=== PATIENT | male | born 1955 | race Caucasian/White ===

== ENCOUNTER 2016-11-04 08:24 | Observation (INO) | payer BC, OTHER ==
[~2016-11-04] VITALS: Ht 182.9 cm; Wt 85.0 kg
[2016-11-04] VITALS (8 sets, daily range): BP systolic 110–131; BP diastolic 70–83; PULSE 58–67; RESP 16–18; TEMP 97.5–97.9; O2SAT 95–99
[~2016-11-04 08:24] MED LIST: ENOX30P SQ; FERR324T8 PO; LORTA5 PO; Z.0.COMMODE-3:1; Z.0.WALKERFRONT
[2016-11-04] MEDS ORDERED: IOHEXOL 350 MG/ML 10 ML VIAL (for RAD DIAG) IVCONTRAST ONE (08:25)
--- NOTE | 2016-11-04 08:50 | PD ---
HPI Chief Complaint: Chest Pain Time Seen by Provider: 08:49 Travel History International Travel<30 days: No Contact w/Intl Traveler<30days: No Traveled to known affect area: No History of Present Illness HPI 61-year-old male came to the emergency room with history of chest pain and shortness of breath that started all of a sudden about 1 hour ago. Patient points to the left side of his chest where the pain is. He describes the pain like a pressure and says it 7 out of 10. Pain is worse upon taking a deep inspiration. No relieving factors identified. Patient was not doing anything strenuous when the pain started. He's never experienced pain like this before. Vital signs were stable. Patient is not on any medications. He has a primary care. Patient has never had any stress test or cardiac catheterization. Patient is a smoker. His dad has history of coronary artery disease at the age of 70s. PFSH Past Medical History Narrative Medical list of his past medical, surgical, social and family history reviewed from the nursing note. Arthritis: Yes Cancer: Yes (SKIN) Cardiovascular Problems: No Diabetes: No Diminished Hearing: No Endocrine: No Gastrointestinal Disorders: No Genitourinary: No Hepatitis: No Hiatal Hernia: No Hypertension: No Immune Disorder: No Implanted Vascular Access Dvce: Yes Kidney Stones: Yes (DX ON 11/29/06 AT [facility] IN [place]) Musculoskeletal: Yes (ARTHRITIS) Neurologic: No Psychiatric: No Reproductive: No Respiratory: No Immunizations Current: No Thyroid Disease: No Tetanus Vaccination: < 5 Years Influenza Vaccination: No Past Surgical History Abdominal Surgery: No AICD: No Body Medical Devices: LEFT SHOULDER RECAP (IS METAL) Cardiac Surgery: No Ear Surgery: No Eye Surgery: No Genitourinary Surgery: No Joint Replacement: Yes (RIGHT KNEE ) Neurologic Surgery: No Oral Surgery: Yes (WISDOM TEETH EXTRACT., TONSILLECTOMY) Pacemaker: No Thoracic Surgery: No Tonsillectomy: Yes Other Surgery: Yes (SHOULDER, STAPH L ELBOW) Social History Alcohol Use: Yes (OCASSIONALLY) Tobacco Use: No Substance Use: No (PT DENIES ) Allergies-Medications (Allergen,Severity, Reaction): Coded Allergies: adhesive (Verified Allergy, Severe, SKIN INFLAMMATION, 11/04/16) rivaroxaban (Verified Allergy, Unknown, Hives, 11/04/16) Comments list of his allergies reviewed from the nursing note. Reported Meds & Prescriptions Reported Meds & Active Scripts Active No Active Prescriptions or Reported Medications Narrative Medication List of his home medications reviewed from the nursing note. Review of Systems Except as stated in HPI: all other systems reviewed are Neg Physical Exam Narrative GENERAL: Awake, alert, anxious, moderate distress SKIN: Focused skin assessment warm/dry. HEAD: Atraumatic. Normocephalic. EYES: Pupils equal and round. No scleral icterus. No injection or drainage. ENT: No nasal bleeding or discharge. Mucous membranes pink and moist. NECK: Trachea midline. No JVD. CARDIOVASCULAR: Regular rate and rhythm. No murmur appreciated. RESPIRATORY: No accessory muscle use. Clear to auscultation. Breath sounds equal bilaterally. GASTROINTESTINAL: Abdomen soft, non-tender, nondistended. Hepatic and splenic margins not palpable. MUSCULOSKELETAL: No obvious deformities. No clubbing. No cyanosis. No edema. NEUROLOGICAL: Awake and alert. No obvious cranial nerve deficits. Motor grossly within normal limits. Normal speech. PSYCHIATRIC: Appropriate mood and affect; insight and judgment normal. Data Data Last Documented VS Vital Signs Date Time Temp Pulse Resp B/P (MAP) Pulse Ox O2 Delivery O2 Flow Rate FiO2 11/04/16 11:00 97.8 60 17 131/83 (99) 97 Room Air Orders Orders Electrocardiogram (11/04/16 08:55) Basic Metabolic Panel (Bmp) (11/04/16 08:55) B-Type Natriuretic Peptide (11/04/16 08:55) Ckmb (Isoenzyme) Profile (11/04/16 08:55) Complete Blood Count With Diff (11/04/16 08:55) D-Dimer (11/04/16 08:55) Magnesium (Mg) (11/04/16 08:55) Prothrombin Time / Inr (Pt) (11/04/16 08:55) Act Partial Throm Time (Ptt) (11/04/16 08:55) Troponin I (11/04/16 08:55) Chest, Single Ap (11/04/16 08:55) Ecg Monitoring (11/04/16 08:55) Bilateral Bp Monitoring (11/04/16 08:55) Iv Access Insert/Monitor (11/04/16 08:55) Oximetry (11/04/16 08:55) Oxygen Administration (11/04/16 08:55) Aspirin Chew (Aspirin Chew) (11/04/16 09:00) Sodium Chloride 0.9% Flush (Ns Flush) (11/04/16 09:00) Morphine Inj (Morphine Inj) (11/04/16 09:00) CKMB (11/04/16 09:00) CKMB% (11/04/16 09:00) Ct Pulmonary Angiogram (11/04/16 ) Sodium Chlorid 0.9% 500 Ml Inj (Ns 500 M (11/04/16 11:00) Iohexol 350 Inj (Omnipaque 350 Inj) (11/04/16 08:25) Admit Order (Ed Use Only) (11/04/16 12:38) Labs Laboratory Tests Test 11/04/16 09:00 White Blood Count 5.8 TH/MM3 Red Blood Count 5.20 MIL/MM3 Hemoglobin 15.1 GM/DL Hematocrit 46.4 % Mean Corpuscular Volume 89.3 FL Mean Corpuscular Hemoglobin 29.0 PG Mean Corpuscular Hemoglobin Concent 32.5 % Red Cell Distribution Width 13.1 % Platelet Count 183 TH/MM3 Mean Platelet Volume 10.4 FL Neutrophils (%) (Auto) 66.0 % Lymphocytes (%) (Auto) 20.3 % Monocytes (%) (Auto) 8.8 % Eosinophils (%) (Auto) 3.8 % Basophils (%) (Auto) 1.1 % Neutrophils # (Auto) 3.8 TH/MM3 Lymphocytes # (Auto) 1.2 TH/MM3 Monocytes # (Auto) 0.5 TH/MM3 Eosinophils # (Auto) 0.2 TH/MM3 Basophils # (Auto) 0.1 TH/MM3 CBC Comment DIFF FINAL Differential Comment Prothrombin Time 11.2 SEC Prothromb Time International Ratio 1.0 RATIO Activated Partial Thromboplast Time 26.8 SEC D-Dimer Quantitative (PE/DVT) 0.52 MG/L FEU Blood Urea Nitrogen 19 MG/DL Creatinine 1.18 MG/DL Random Glucose 89 MG/DL Calcium Level 8.5 MG/DL Magnesium Level 2.4 MG/DL Sodium Level 139 MEQ/L Potassium Level 4.2 MEQ/L Chloride Level 106 MEQ/L Carbon Dioxide Level 28.4 MEQ/L Anion Gap 5 MEQ/L Estimat Glomerular Filtration Rate 63 ML/MIN Total Creatine Kinase 130 U/L Creatine Kinase MB 1.3 NG/ML Troponin I LESS THAN 0.02 NG/ML B-Type Natriuretic Peptide 23 PG/ML MDM Medical Decision Making Medical Screen Exam Complete: Yes Emergency Medical Condition: Yes Medical Record Reviewed: Yes Interpretation(s) Normal sinus rhythm, normal axis, bradycardia, nonspecific ST-T wave changes. Heart rate of 55 bpm. Differential Diagnosis ACS, non-STEMI, PE Narrative Course 11:57 AM blood test results of back and within acceptable limits. D-dimer was slightly elevated. Chest x-rays within normal limit. However because of the elevated d-dimer and history of pleuritic chest pain I have ordered a CT pulmonary angiogram. Awaiting for the test results. If CT pulmonary gram does not show PE patient will be admitted to the chest pain center. He was given 2 baby aspirin and IV morphine for his pain. 12:[address] pulmonary angiogram was negative for PE. I've admitted the patient to the chest pain center to rule out ACS. Procedures EKG Prior to Arrival: No Diagnosis Primary Impression: Chest pain Qualified Codes: R07.9 - Chest pain, unspecified Admitting Information Admitting Physician Requests: Observation Scripts No Active Prescriptions or Reported Meds Funmilayo Tinajero MD Nov 04, 2016 08:50
[2016-11-04] MEDS ORDERED: ASPIRIN 81 MG CHEW TAB PO ONE (09:00)
[2016-11-04] MEDS ORDERED: MORPHINE SULFATE 4 MG/ML INJ IV PUSH ONE (09:00)
[2016-11-04] MEDS: SODIUM CHLORIDE 0.9% FLUSH 10 ML FLUSH IVF PRN ×2 (09:04→12:54)
--- NOTE | 2016-11-04 09:30 | RADRPT ---
EXAM DATE/TIME: 11/04/2016 08:57 [facility] COMPARISON: CHEST SINGLE AP, November 07, 2014, 22:34. INDICATIONS : Chest pain. MEDICAL HISTORY : None. SURGICAL HISTORY : None. ENCOUNTER: Initial ACUITY: 2 days PAIN SCORE: 9/10 LOCATION: Left upper chest FINDINGS: A single view of the chest demonstrates the lungs to be symmetrically aerated without evidence of mas s, infiltrate or effusion. The cardiomediastinal contours are unremarkable. Left shoulder arthropla sty. Osseous structures are intact. CONCLUSION: 1. No acute cardiopulmonary disease. Joe Abebe MD on November 04, 2016 at 9:26 Board Certified Radiologist. This report was verified electronically.
[2016-11-04 09:37] LABS: AUTOMATED NEUTROPHIL # 3.8 TH/MM3 (1.8-7.7); BASOPHIL # 0.1 TH/MM3 (0-0.2); BASOPHIL % 1.1 % (0.0-2.0); EOSINOPHIL # 0.2 TH/MM3 (0-0.4); EOSINOPHIL % 3.8 % (0.0-4.0); HEMATOCRIT 46.4 % (39.0-51.0); HEMO FLAGS DIFF FINAL; LYMPH % 20.3 % (9.0-44.0); LYMPHOCYTE # 1.2 TH/MM3 (1.0-4.8); MEAN CELL VOLUME 89.3 FL (80.0-100.0); MEAN CORPUSCULAR HGB CONC 32.5 % (32.0-36.0); MONO % 8.8 % (0.0-8.0); PLATELET COUNT 183 TH/MM3 (150-450); RED CELL DISTRIBUTION WIDTH 13.1 % (11.6-17.2); WHITE BLOOD COUNT 5.8 TH/MM3 (4.0-11.0)
[2016-11-04 09:47] LABS: APTT (PATIENT) 26.8 SEC (24.3-30.1); PROTHROMBIN TIME - PATIENT 11.2 SEC (9.8-11.6)
[2016-11-04 09:58] LABS: CREATINE KINASE 130 U/L (39-308)
[2016-11-04 10:04] LABS: ANION GAP 5 MEQ/L (5-15); BICARBONATE 28.4 MEQ/L (21.0-32.0); BLOOD UREA NITROGEN 19 MG/DL (7-18); CHLORIDE 106 MEQ/L (98-107); GLOMERULAR FILTRATION RATE 63 ML/MIN (>89); MAGNESIUM 2.4 MG/DL (1.5-2.5); POTASSIUM 4.2 MEQ/L (3.5-5.1); SODIUM (NA) 139 MEQ/L (136-145)
[2016-11-04 10:14] LABS: CKMB 1.3 NG/ML (0.5-3.6)
[2016-11-04] MEDS ORDERED: SODIUM CHLORID 0.9% 500 ML INJ 500 ML IV ONE (11:00)
--- NOTE | 2016-11-04 11:03 | EKG ---
Date Performed: 11/04/2016 Time Performed: 08:33:29 PTAGE: 61 years EKG: SINUS BRADYCARDIA BORDERLINE ECG PREVIOUS TRACING : 11/04/2016 08.32 No significant change from previous tracing noted. DOCTOR: Rajat Paredes Interpretating Date/Time 11/04/2016 11:02:37
--- NOTE | 2016-11-04 11:22 | RADRPT ---
EXAM DATE/TIME: 11/04/2016 11:02 [facility] COMPARISON: No previous studies available for comparison. INDICATIONS : Chest pain, left arm numbness, nausea. IV CONTRAST: 85 cc Omnipaque 350 (iohexol) IV RADIATION DOSE: 23.14 CTDIvol (mGy) MEDICAL HISTORY : Renal calculi. SURGICAL HISTORY : None. ENCOUNTER: Initial ACUITY: 1 day PAIN SCALE: 4/10 LOCATION: Left chest TECHNIQUE: Volumetric scanning of the chest was performed using a pulmonary embolism protocol MIP images were re constructed. Using automated exposure control and adjustment of the mA and/or kV according to patien t size, radiation dose was kept as low as reasonably achievable to obtain optimal diagnostic quality images. DICOM format image data is available electronically for review and comparison. Follow-up recommendations for detected pulmonary nodules are based at a minimum on nodule size and pa tient risk factors according to Fleischner Society Guidelines. FINDINGS: The lungs are clear without infiltrate, nodule, or mass. There is no pleural effusion. No appreciab le pathological adenopathy is seen within the mediastinum. There is no evidence for PE for technique. CONCLUSION: Unremarkable study. Nuzhat Titus MD on November 04, 2016 at 11:18 Board Certified Radiologist. This report was verified electronically.
[2016-11-04] MEDS ORDERED: KETOROLAC TROMETHAMINE 30 MG/ML (IVP) VIAL IV PUSH ONE (12:45)
--- NOTE | 2016-11-04 14:10 | HHI.HP ---
[facility] Primary Care Physician Chris Jason MD Chief Complaint Chest pain History of Present Illness This is a 61-year-old male that presents to ED with a complaint of a left-sided chest discomfort. It was a sudden onset that began at 745 this morning while he was at home getting ready for work. When asked to describe the discomfort he states "like someone stabbing me." States the discomfort is still there. It was an 8 out of 10 but states it reduced to about a 4 out of 10 after getting IV morphine. Found nothing to worsen it. Cannot recall having a prior cardiac workup. States that his father has CAD onset in his 70s. Patient states he is active. 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 Denies recent illness. Denies recent travel. Review of Systems General: Patient denies fevers, chills recent, and recent travel HEENT: Patient denies headache, sore throat, difficulty swallowing. Cardiovascular: Has the chest discomfort as mentioned above. Denies sensation of heart beating rapidly or irregularly. No syncope. Denies diaphoresis. Respiratory: He was short of breath earlier this morning. Worsened with deep inspiration. Denies coughing wheezing or hemoptysis. GI: He was nauseous initially. Patient denies vomiting, diarrhea, abdominal pain, bloody stools. Musculoskeletal: Patient denies joint pain or edema. Denies calf pain or edema. Neurovascular: Patient denies numbness, tingling, weakness in extremities. Denies headache. Endocrine: Denies polyuria and polydipsia. Hematologic: Denies easy bruising. Skin: Denies rash or itching. Past Family Social History Allergies: Coded Allergies: adhesive (Verified Allergy, Severe, SKIN INFLAMMATION, 11/04/16) rivaroxaban (Verified Allergy, Unknown, Hives, 11/04/16) Past Medical History Hyperlipidemia but states labs were just rechecked and seemed to be doing okay. No prescription yet. History of kidney disease that he states is related to NSAID use. Denies hypertension, diabetes, and known CAD. Past Surgical History Hip surgery, knee surgery, shoulder surgery, and tonsillectomy. Reported Medications Reported Meds & Active Scripts Active No Active Prescriptions or Reported Medications Active Ordered Medications Current Medications Medications (Trade) Dose Ordered Sig/[place] Route Start Time Stop Time Status Last Admin (NS Flush) 2 ml UNSCH PRN IVF 11/04/16 09:00 11/04/16 12:54 ([place] 7.5-325 Mg) 1 tab Q4H PRN PO 11/04/16 14:00 UNV (Zofran Inj) 4 mg Q6H PRN IV 11/04/16 14:00 UNV (Aspirin) 325 mg DAILY PO 11/05/16 09:00 UNV (Xanax) 0.25 mg Q8H PRN PO 11/04/16 14:00 UNV Family History His father had CAD onset in his 70s. Social History Patient is a lifetime nonsmoker. Occasionally has alcohol. Denies illicit drugs. He is . Physical Exam Vital Signs Vital Signs Date Time Temp Pulse Resp B/P (MAP) Pulse Ox O2 Delivery O2 Flow Rate FiO2 11/04/16 13:55 97.9 58 16 118/83 (95) 99 11/04/16 13:54 16 11/04/16 13:52 21 11/04/16 12:55 97.9 61 16 124/81 (95) 97 Room Air 11/04/16 11:00 97.8 60 17 131/83 (99) 97 Room Air 11/04/16 09:35 97.8 64 16 122/79 (93) 99 Room Air 11/04/16 09:09 17 11/04/16 09:05 58 18 118/75 (89) 96 Room Air 117/77 (90) 11/04/16 09:00 17 97 Room Air 11/04/16 09:00 97 Room Air 11/04/16 08:35 66 17 96 Room Air 11/04/16 08:26 97.5 67 16 117/72 (87) 97 Room Air Physical Exam GENERAL: This is a well-nourished, well-developed patient, in no apparent distress. Patient speaks in clear complete sentences. Patient is pleasant. HEENT: Head is atraumatic and normocephalic. Neck is supple without lymphadenopathy and trachea is midline. No JVD or carotid bruits. CARDIOVASCULAR: Regular rate and rhythm without murmurs, gallops, or rubs. RESPIRATORY: Clear to auscultation. Breath sounds equal bilaterally. No wheezes , rales, or rhonchi. Chest wall is nontender. No use of accessory muscles. GASTROINTESTINAL: Abdomen is nontender, nondistended. Abdomen soft. No obvious pulsatile mass or bruit. No CVA tenderness. Strong femoral pulses bilaterally. Normal bowel sounds in all quadrants. MUSCULOSKELETAL: Patient is moving upper and lower extremities freely. No calf tenderness or edema, no Homans sign. Strong pulses in upper and lower extremities. NEUROLOGICAL: Patient is alert and oriented. Cranial nerves 2-12 are grossly intact. No focal deficits and speech is clear. SKIN: No rash and turgor is normal. Laboratory Laboratory Tests Test 11/04/16 09:00 White Blood Count 5.8 Red Blood Count 5.20 Hemoglobin 15.1 Hematocrit 46.4 Mean Corpuscular Volume 89.3 Mean Corpuscular Hemoglobin 29.0 Mean Corpuscular Hemoglobin Concent 32.5 Red Cell Distribution Width 13.1 Platelet Count 183 Mean Platelet Volume 10.4 Neutrophils (%) (Auto) 66.0 Lymphocytes (%) (Auto) 20.3 Monocytes (%) (Auto) 8.8 Eosinophils (%) (Auto) 3.8 Basophils (%) (Auto) 1.1 Neutrophils # (Auto) 3.8 Lymphocytes # (Auto) 1.2 Monocytes # (Auto) 0.5 Eosinophils # (Auto) 0.2 Basophils # (Auto) 0.1 CBC Comment DIFF FINAL Differential Comment Prothrombin Time 11.2 Prothromb Time International Ratio 1.0 Activated Partial Thromboplast Time 26.8 D-Dimer Quantitative (PE/DVT) 0.52 Blood Urea Nitrogen 19 Creatinine 1.18 Random Glucose 89 Calcium Level 8.5 Magnesium Level 2.4 Sodium Level 139 Potassium Level 4.2 Chloride Level 106 Carbon Dioxide Level 28.4 Anion Gap 5 Estimat Glomerular Filtration Rate 63 Total Creatine Kinase 130 Creatine Kinase MB 1.3 Troponin I LESS THAN 0.02 B-Type Natriuretic Peptide 23 Result Diagram: 11/04/16 0900 11/04/16 0900 Imaging Last 48 hours Impressions Chest X-Ray 11/04/16 0855 Signed Impressions: Service Date/Time: October 08:57 - CONCLUSION: 1. No acute cardiopulmonary disease. Joe Abebe MD CT Angiography 11/04/16 0000 Signed Impressions: Service Date/Time: October 11:02 - CONCLUSION: Unremarkable study. Nuzhat Titus MD Course Initial EKG is sinus bradycardia without significant ST segment depressions or elevations. A repeated EKG is similar. No significant ST segment depressions or elevations. Caprini VTE Risk Assessment Caprini VTE Risk Assessment: No/Low Risk (score <= 1) Caprini Risk Assessment Model Point Value = 1 Point Value = 2 Point Value = 3 Point Value = 5 Age 41-60 Minor surgery BMI > 25 kg/m2 Swollen legs Varicose veins or History of unexplained or recurrent spontaneous Oral contraceptives or hormone replacement Sepsis (< 1 month) Serious lung disease, including pneumonia (< 1 month) Abnormal pulmonary function Acute myocardial infarction Congestive heart failure (< 1 month) History of inflammatory bowel disease Medical patient at bed rest Age 61-74 Arthroscopic surgery Major open surgery (> 45 min) Laparoscopic surgery (> 45 min) Malignancy Confined to bed (> 72 hours) Immobilizing plaster cast Central venous access Age >= 75 History of VTE Family history of VTE Factor V Leiden Prothrombin [id number] Lupus anticoagulant Anticardiolipin antibodies Elevated serum homocysteine Heparin-induced thrombocytopenia Other congenital or acquired thrombophilia Stroke (< 1 month) Elective arthroplasty Hip, pelvis, or leg fracture Acute spinal cord injury (< 1 month) Prophylaxis Regimen Total Risk Factor Score Risk Level Prophylaxis Regimen 0-1 Low Early ambulation 2 Moderate Order ONE of the following: *Sequential Compression Device (SCD) *Heparin 5000 units SQ BID 3-4 Higher Order ONE of the following medications: *Heparin 5000 units SQ TID *Enoxaparin/Lovenox 40 mg SQ daily (WT < 150 kg, CrCl > 30 mL/min) *Enoxaparin/Lovenox 30 mg SQ daily (WT < 150 kg, CrCl > 10-29 mL/min) *Enoxaparin/Lovenox 30 mg SQ BID (WT < 150 kg, CrCl > 30 mL/min) AND/OR *Sequential Compression Device (SCD) 5 or more Highest Order ONE of the following medications: *Heparin 5000 units SQ TID (Preferred with Epidurals) *Enoxaparin/Lovenox 40 mg SQ daily (WT < 150 kg, CrCl > 30 mL/min) *Enoxaparin/Lovenox 30 mg SQ daily (WT < 150 kg, CrCl > 10-29 mL/min) *Enoxaparin/Lovenox 30 mg SQ BID (WT < 150 kg, CrCl > 30 mL/min) AND *Sequential Compression Device (SCD) Assessment and Plan Assessment and Plan * Chest pain: Patient's first set of enzymes are normal. He will be seen by Dr. Chris Rabago of cardiology in the chest pain center and will likely undergo a Isaias protocol ETT. He will be discharged stress test is nonischemic. * Hyperlipidemia: Continue follow-up with his physician. Patient is stable this time. He is agreeable to this plan. Jonah Grossman Nov 04, 2016 14:10
[2016-11-04] MEDS ORDERED: ONDANSETRON HCL 4 MG/2 ML VIAL IV PRN (15:00)
[2016-11-04] MEDS ORDERED: ALPRAZolam 0.25 MG TAB PO PRN (15:00)
[2016-11-04] MEDS ORDERED: ACETAMINOPHEN/HYDROcodone 325 MG/7.5 MG TAB PO PRN (15:00)
--- NOTE | 2016-11-04 16:25 | HHI.DCPOC ---
Discharge Care Plan Diagnosis: (1) Chest pain Goals to Promote Your Health * To prevent worsening of your condition and complications * To maintain your health at the optimal level Directions to Meet Your Goals Take your medications as prescribed Follow your dietary instruction Follow activity as directed Keep your appointments as scheduled Take your immunizations and boosters as scheduled If your symptoms worsen call your PCP, if no PCP go to Urgent Care Center or Emergency Room Smoking is Dangerous to Your Health. Avoid second hand smoke Call the 24-hour hour crisis hotline for domestic abuse at Jonah Grossman Nov 04, 2016 16:25
--- NOTE | 2016-11-04 16:40 | TR ---
Date Performed: 11/04/2016 Time Performed: 14:54:13 DOCTOR: Chris Rabago DRUG LIST: CLINICAL HISTORY: REASON FOR TEST: Chest pain / RULE OUT ACS REASON FOR ENDING: OBSERVATION: CONCLUSION: SHERWIN PROTOCOL. NO CP. TEST STOPPED AFTER EXCEEDING GOAL HR SECONDARY TO SOB AND LEG FATIGUE.Maximum VI=757 % Max HR Hyhajofi=123.0% Maximum NP=782/90 Total Exercise Time=8:00 COMMENTS: Patient exercised using the Sherwin protocol. No electrocardiographic changes were seen to suggest ischemia. Hemodynamic response to exercise was normal. No significant arrhythmia was prese nt.
[2016-11-05] MEDS ORDERED: ASPIRIN 325 MG TAB PO SCH (09:00)
--- NOTE | 2016-11-06 08:49 | EKG ---
Date Performed: 11/04/2016 Time Performed: 13:46:30 PTAGE: 61 years EKG: SINUS BRADYCARDIA BORDERLINE ECG INTERPRETATION BASED ON A DEFAULT AGE OF 41 YEARS NO PREVIOUS TRACING DOCTOR: Chris Rabago Interpretating Date/Time 11/06/2016 08:48:03
== END 2016-11-04 17:50 | disposition home or self-care (01) ==
LOC: NEPC 08:24 → NEDA 12:40 → NEPFCDU 14:04
PROVIDERS: ADMIT Internal Medicine Cardiovascular Disease; ATTEND Internal Medicine Cardiovascular Disease
DX: R07.9 Chest pain, unspecified (principal); E78.5 Hyperlipidemia, unspecified; Z82.49 Family history of ischemic heart disease and other diseases of the circulatory system
CPT/HCPCS: 71010; 71275; 80048; 82550; 82552; 83735; 83880; 84484; 85025; 85379; 85610; 85730; 93005; 93017; 96361; 96374; 96375; 99285; G0378; J1885; J2270; J7040; Q9967